=== PATIENT | male | born 1955 | race Caucasian/White ===

== ENCOUNTER → 2021-02-20 | Day surgery (SDC) | payer OTHER ==
[~2021-02-20] MED LIST: ALOG12.5 PO; ASPI-630 PO; ATOR40TA59 PO; BUPIVACAINE MPF 0.25% 10 ML VIAL. ONE; CITA20TA6 PO; CYCL10TA19 PO; CYPR4TAB31 PO; EPIN0.3A4 IM; GABA-586 PO; IBUP800T19 PO; IOHEXOL 300 MG/ML 50 ML VIAL. ONE; LIDOCAINE 1% PF 30 ML VIAL. ONE; METF10007 PO; MULT-445 PO; NALO4SPR NS; OMEG1CAP50 PO; OXYC5TAB4 PO; SERT50TA PO; glucosamine PO; methylPREDNISolone ACETATE 80 MG/ML VIAL. ONE
[2021-02-20 12:27] VITALS: BP 179/83
== END | disposition home or self-care (01) ==
LOC: SURG 11:23
PROVIDERS: ATTEND Anesthesiology
DX: M46.1 Sacroiliitis, not elsewhere classified (principal); M54.5 Low back pain; G89.29 Other chronic pain; E11.9 Type 2 diabetes mellitus without complications; E78.5 Hyperlipidemia, unspecified; G47.30 Sleep apnea, unspecified; F41.9 Anxiety disorder, unspecified; F32.9 Major depressive disorder, single episode, unspecified; Z98.890 Other specified postprocedural states; Z79.899 Other long term (current) drug therapy
CPT/HCPCS: G0260; J1040; J3490; Q9967; 27096

== ENCOUNTER → 2021-06-05 | Day surgery (SDC) | payer OTHER ==
[2021-06-05 12:15] VITALS: BP 141/78
== END | disposition home or self-care (01) ==
LOC: SURG 11:10
PROVIDERS: ATTEND Anesthesiology
DX: M46.1 Sacroiliitis, not elsewhere classified (principal); E11.9 Type 2 diabetes mellitus without complications; E78.5 Hyperlipidemia, unspecified; G47.30 Sleep apnea, unspecified; F32.9 Major depressive disorder, single episode, unspecified; F41.9 Anxiety disorder, unspecified; Z79.82 Long term (current) use of aspirin; Z79.84 Long term (current) use of oral hypoglycemic drugs; Z79.899 Other long term (current) drug therapy; Z98.890 Other specified postprocedural states
CPT/HCPCS: 27096; A4209; A4657; A4930; J1040; J3490; Q9967; 77002; G0260